=== PATIENT | female | born 1940 | race Caucasian/White ===

== ENCOUNTER 2017-07-25 17:00 | Inpatient (IN) | payer MEDICARE, OTHER ==
[~2017-07-25] VITALS: Ht 144.8 cm; Wt 71.0 kg
--- NOTE | ~2017-07-25 | HP ---
PATIENT'S NAME: LOY MOORE [facility] AGE: 77 Y [address] ROOM: [place] [address] LOCATION: [facility] ADMIT DATE: 07/25/2017 History & Physical DISCHARGE DATE: FAMILY PHYSICIAN: Marine Dunn MD ATTENDING PHYSICIAN: MARINE HAILE DATE OF SERVICE: HISTORY OF PRESENT ILLNESS: Ms. Moore is a 77-year-old female, transferred to after having initially been evaluated in [place], with a chief complaint of right shoulder pain and a secondary complaint of right 5th digit pain. Pain in both of these areas commenced acutely as the result of a fall this morning. She states that she tripped and landed on her right side. She denies associated or precipitating head trauma or loss of consciousness. She denies associated or precipitating presyncope or syncope. She states that she has a history of low-grade intermittent right shoulder pain in the past for which she has received periodic chiropractic treatments. She has no history of prior surgery on the right shoulder. Her past orthopedic history is significant for having undergone open reduction and internal fixation of fractures of the left shoulder and left hip with me a few years ago. She denies numbness or paresthesias in her right hand. After having been diagnosed with a right proximal humerus fracture in [place], she was transferred here by a private vehicle by her daughter. ALLERGIES: PENICILLIN. PAST SURGICAL HISTORY: Open reduction and internal fixation of left shoulder. Open reduction and internal fixation of left hip. Her past medical history is otherwise as specified on her hospital chart. PRESENT MEDICATIONS: Otherwise as specified on her hospital chart. SOCIAL HISTORY: Lives independently. Uses a cane in her right hand due to compromised balance. She is accompanied by her daughter, Estefany, and her grandson, Luis Manuel. PHYSICAL EXAMINATION: GENERAL: Alert, oriented, well-hydrated, well-nourished, pleasant, cooperative female who is in no distress. MUSCULOSKELETAL: There is moderate swelling at the right shoulder. There is significant tenderness at the right deltoid region. There are no active skin PATIENT'S NAME: LOY MOORE [facility] AGE: 77 Y [address] ROOM: [place] [address] LOCATION: [facility] ADMIT DATE: 07/25/2017 History & Physical DISCHARGE DATE: FAMILY PHYSICIAN: Marine Dunn MD ATTENDING PHYSICIAN: MARINE HAILE lesions or masses throughout the right upper extremity. There is moderate swelling and associated tenderness at the base of the right 5th digit. She is wearing a splint on the right 5th digit, which extends from the tip of the 5th digit to the midportion of the proximal phalanx. She has a well-healed deltopectoral scar at the left shoulder. There is no swelling or tenderness at either elbow. 2+ radial pulses bilaterally. Median, radial, and ulnar nerve motor and sensory functions are normal at the right hand with the exception of 4/5 infant toddler lead teacher strength (flexion strength at the 5th digit is week associated with pain at the base of the 5th digit). NEUROLOGIC: She is alert and oriented to person place and time. RADIOGRAPHS: Two views of the right shoulder demonstrate a displaced surgical neck fracture. The humeral head is not well visualized, but it does not appear dislocated. CT scan images of the right shoulder demonstrate a head splitting fracture with significant articular incongruity. There are comminuted fractures of the greater and lesser tuberosities. Plain radiographs of the right hand demonstrate a markedly angulated fracture of the base of the proximal phalanx with approximately 30 degrees apex volar angulation. IMPRESSION: 1. Severely comminuted, displaced, intra-articular right proximal humerus fracture. 2. Markedly angulated right 5th digit proximal phalanx fracture. RECOMMENDATIONS: I have reviewed operative and nonoperative options for both of these injuries. For the 5th digit, I have recommended a trial of splinting in an ulnar gutter splint in flexion. This will be applied after surgery on the shoulder. I have discussed relative risks, benefits, limitations, and alternatives to open reduction and internal fixation versus hemiarthroplasty versus reverse total shoulder arthroplasty. I feel that her best option would be a reverse total shoulder arthroplasty (given the comminuted intra-articular nature of the injury). I have discussed technical aspects of surgery as well as risks and limitations thereof with the patient as well as with her daughter. We have also discussed the anticipated need for 6 weeks of immobilization in a sling. We have specifically discussed the potential for infection, stiffness, neurovascular complications, stiffness, instability, blood transfusion risks, PATIENT'S NAME: LOY MOORE [facility] AGE: 77 Y [address] ROOM: [id number] [place], [place] [address] LOCATION: [facility] ADMIT DATE: 07/25/2017 History & Physical DISCHARGE DATE: FAMILY PHYSICIAN: Marine Dunn MD ATTENDING PHYSICIAN: MARINE HAILE wear, loosening, and potential need for revision. The patient has been admitted. Mechanical DVT prophylaxis and incentive spirometry have been initiated. I have consulted Dr. Kelvin Taylor for preoperative medical optimization and perioperative medical management. We will proceed to the operating room first thing in the morning. Informed consent has been granted. MD JEFFREY GONSALEZ/shirlene /[id number] D: [id number] T: [id number] HISTORY & PHYSICAL
--- NOTE | ~2017-07-25 | CON ---
PATIENT'S NAME: LOY MONDRAGON [facility] AGE: 77 Y [address] ROOM: [place] [address] LOCATION: [facility] ADMIT DATE: 07/25/2017 Consultation DISCHARGE DATE: 07/28/2017 FAMILY PHYSICIAN: Richard Dunn MD ATTENDING PHYSICIAN: Richard Smalls REFERRING PHYSICIAN: Mahi Taylor MD CHIEF COMPLAINT: Right shoulder pain and right hand pain. HISTORY OF PRESENT ILLNESS: The patient is a 77-year-old white female who was transferred to [facility] the care of Dr. Richard Smalls after being evaluated at [place], [place]. At that time, she had chief complaint right shoulder pain and a secondary complaint of a right 5th digit pain. She had tripped at home and landed on her right side. She has had a previous open reduction and internal fixation of her left shoulder and an open reduction and internal fixation of her left hip in the past. Dr. Smalls consulted me to see her for medical management because of her history of Parkinson disease and for general medical management. When I see the patient preop, she is uncomfortable, sitting in bed with her right arm in a sling. She does not complain of recent chest pain, shortness of breath, or MD. Her sugar originally here checked was elevated 500, but this was drawn above where she being given IV fluid. She gives no history of diabetes mellitus type 2. She has no history of bleeding disorder or problem with general anesthesia. She does not have obstructive sleep apnea by history. PAST MEDICAL HISTORY: ALLERGIES: TO PENICILLIN. PREVIOUS OPERATIONS: As described above. SOCIAL HISTORY: Lives independently, is . IMMUNIZATIONS: Status unknown. REVIEW OF SYSTEMS: Positive for Parkinson disease, previous surgeries as mentioned. Negative for heart disease, lung disease, GI problems, or diabetes. PATIENT'S NAME: LOY MONDRAGON [facility] AGE: 77 Y [address] ROOM: [place] [address] LOCATION: [facility] ADMIT DATE: 07/25/2017 Consultation DISCHARGE DATE: 07/28/2017 FAMILY PHYSICIAN: Richard Dunn MD ATTENDING PHYSICIAN: Richard Smalls PHYSICAL EXAMINATION: GENERAL: Pleasant elderly female, lying in bed, with her arm in a sling. She is oriented to person, place, and time. HEENT: Shows pupils reactive to light. She is wearing glasses. TMs not visualized. Posterior pharynx is clear. Mucous membranes are moist. NECK: Unremarkable. Thyroid not enlarged. No adenopathy. I did not listen for bruits. LUNGS: Clear anteriorly. HEART: Shows no murmur, gallop, or rub. ABDOMEN: Benign without point tenderness or mass. PELVIC AND RECTAL: Not done. EXTREMITIES: Right arm in a sling. Faheem wrap around her right hand. NEUROLOGIC: Shows cranial nerves intact. No lateralizing signs. Mental status normal for normal for age. No evidence of depression or anxiety. IMPRESSION: 1. Ground level fall. 2. Resultant right proximal humeral fracture. 3. Right angulated 5th digit proximal phalanx fracture. 4. Parkinson disease. 5. Previous open reduction and internal fixation of left shoulder. 6. Previous open reduction and internal fixation left hip. PLAN: We will follow daily if further treatment is indicated. MAHI TAYLOR MD SITE IDENTIFICATION SPECIALIST/modl /[id number] d: 07/27/17 1317 t: 08/07/17 0759, CONSULTATION REPORT
--- NOTE | ~2017-07-25 | OR ---
PATIENT'S NAME: LOY MOORE [facility] AGE: 77 Y [address] ROOM: [place] [address] LOCATION: [facility] ADMIT DATE: 07/25/2017 OR/Procedure Report DISCHARGE DATE: FAMILY PHYSICIAN: Richard Dunn MD ATTENDING PHYSICIAN: Richard Smalls SURGEON: Richard Smalls MD HOOKER UP: 1. SENG Justin. 2. Jose Angel Ba CST/TELEPHONE AD TAKER. DATE OF PROCEDURE: 07/26/2017 PREOPERATIVE DIAGNOSIS: Comminuted right proximal humerus fracture (four-part fracture with intraarticular extension). PROCEDURE PERFORMED: Right shoulder reverse total shoulder arthroplasty with open reduction and internal fixation of greater and lesser tuberosity fracture fragments. ANESTHESIA: General endotracheal anesthesia plus subcutaneous and periarticular local anesthesia (ropivacaine with epinephrine). DRAINS: None. SPECIMEN: None. COMPLICATIONS: None. IMPLANTS: Mary comprehensive shoulder system humeral fracture stem (8 mm x 122 mm). Size 44 mm humeral tray with 36 mm inner diameter +3 mm humeral polyethylene bearing. Biomet comprehensive 36 mm diameter glenosphere with comprehensive reverse total shoulder arthroplasty mini glenosphere baseplate with 6.5 mm central locking screw and 4.75 mm peripheral locking screws x4. ESTIMATED BLOOD LOSS: Approximately 100 mL. INDICATION FOR PROCEDURE: Ms. Moore is a 77-year-old female who fell yesterday, sustaining a comminuted head-splitting proximal humerus fracture. Risks, benefits, limitations, and alternatives to reverse total shoulder arthroplasty versus hemiarthroplasty versus open reduction and internal fixation have been thoroughly reviewed, and informed consent has been granted. We have discussed potential adverse sequelae of the injury itself as well. We have specifically reviewed risks and implications of infection, tuberosity nonunion, neurovascular complications, stiffness, wear, loosening, instability, and potential need for revision. Informed consent granted. DESCRIPTION OF PROCEDURE: Ms. Moore placed in a modified beach chair position PATIENT'S NAME: LOY MOORE [facility] AGE: 77 Y [address] ROOM: [place] [address] LOCATION: [facility] ADMIT DATE: 07/25/2017 OR/Procedure Report DISCHARGE DATE: FAMILY PHYSICIAN: Richard Dunn MD ATTENDING PHYSICIAN: Richard Smalls after administration of general endotracheal anesthesia and prophylactic antibiotics. The right shoulder was prepped and draped with vigilant sterile technique. The right shoulder was approached through a standard deltopectoral incision. The deltopectoral interval was bluntly developed. There was moderate contusion of the deltoid and considerable swelling of the deltoid. There was a large subdeltoid hematoma. The cephalic vein was identified and mobilized laterally with the deltoid. The biceps tendon was identified. The greater tuberosity fracture fragment was markedly comminuted. The humeral head was in 3 fragments with significant displacement. Articular fragments were extracted. Tagging sutures were placed in the greater and lesser tuberosity fracture fragments. The humeral canal was reamed by hand to a size 8. Circumferential glenoid exposure was obtained. The glenoid face was reamed over a guidewire and the glenoid baseplate was impacted into position and obtained an excellent press fit. This was augmented with a central 6.5 mm locking screw and 4 peripheral 4.75 mm locking screws. The glenosphere was impacted into position and confirmed to be fully and securely seated with circumferential digital palpation. After trial reductions, the humeral component was cemented in 30 degrees of retroversion using Kovio Simplex cement with premixed tobramycin after the cement restrictor had been placed to the appropriate depth. All excess cement was removed. The final humeral baseplate was impacted into position after the trunnion was thoroughly irrigated and dried. A final reduction was performed. The articulation was confirmed to be stable with internal and external rotation with the arm at the side, with the arm forward flexed, and with the arm abducted to 90 degrees. The greater and lesser tuberosity fracture fragments were secured with multiple #5 Ethibond sutures through the fins of the implant. The entire incision and joint space were thoroughly irrigated with bacteriostatic pulsatile saline lavage at this point as well as several times throughout the case. The incision was closed with simple deep interrupted 0 Vicryl followed by superficial buried interrupted 2-0 Vicryl and a running subcuticular 3-0 Monocryl suture, followed by Dermabond, followed by Steri-Strips with benzoin. The dressing consisted of an occlusive Mepilex dressing. PATIENT'S NAME: LOY MOORE [facility] AGE: 77 Y [address] ROOM: [place] [address] LOCATION: [facility] ADMIT DATE: 07/25/2017 OR/Procedure Report DISCHARGE DATE: FAMILY PHYSICIAN: Richard Dunn MD ATTENDING PHYSICIAN: Richard Smalls A shoulder immobilizer was placed and the patient was extubated and transported to the postanesthesia care unit in stable and comfortable condition. There were no complications. MD JEFFREY GONSALEZ/shirlene /[id number] d: 07/26/172303 t: 08/09/172219, OPERATIVE SUMMARY
--- NOTE | ~2017-07-25 | PN ---
PATIENT'S NAME: CINTHIA MOORE [facility] AGE: 77 Y [address] ROOM: [address] [address] LOCATION: [facility] ADMIT DATE: 07/25/2017 Progress Notes DISCHARGE DATE: 07/28/2017 FAMILY PHYSICIAN: Richard Dunn MD ATTENDING PHYSICIAN: Richard Smalls CORRECTED COPY -- WORK TYPE / 07-30-2017 / KLD DATE OF SERVICE: 07/26/2017 HISTORY: Cinthia Moore was admitted yesterday, on 07/25/2017 under the care of Dr. Richard Smalls with a severely comminuted displaced intra-articular right proximal humeral fracture and an angulated right fifth digit proximal phalanx fracture. She was taken to the operating room today. She was cleared medically by me preop. The reason for this update is that on admission her blood sugar was drawn above where her IV was in and her sugar was over 500. Since that time, her Accu-Chek's have been within normal range. The patient gave no family history or prior history of diabetes mellitus, type 2. The patient does not want to be treated for diabetes. So I told her at least while she is here, we would check Accu-Cheks over the next 24 hours and use a sliding scale insulin just as needed and then of course as an outpatient, she can have an A1c drawn. She and her understand that and the reason for her testing. Her vital signs otherwise are stable. The patient is alert when I see her postop, day of surgery in the afternoon. ASSESSMENT: 1. Ground level fall. 2. Comminuted proximal right humeral fracture. 3. Displaced proximal right fifth finger fracture. Both of these fractures have been treated today by Dr. Smalls. 4. Parkinson disease. PLAN: Follow daily. MD ROCIO ROGER/shirlene /[id number] PATIENT'S NAME: CINTHIA MOORE [facility] AGE: 77 Y [address] ROOM: [id number] [place], [place] [address] LOCATION: [facility] ADMIT DATE: 07/25/2017 Progress Notes DISCHARGE DATE: 07/28/2017 FAMILY PHYSICIAN: Richard Dunn MD ATTENDING PHYSICIAN: Richard Smalls CORRECTED COPY -- WORK TYPE / 07-30-2017 / KLD d: 07/27/17 1024 t: 08/07/17 0756, PROGRESS NOTES
--- NOTE | ~2017-07-25 | DS ---
PATIENT'S NAME: LOY MONDRAGON [facility] AGE: 77 Y [address] ROOM: [place] [address] LOCATION: [facility] ADMIT DATE: 07/25/2017 Discharge Summary DISCHARGE DATE: 07/28/2017 FAMILY PHYSICIAN: Richard Dunn MD ATTENDING PHYSICIAN: Richard Smalls PRIMARY DIAGNOSIS: Right proximal humerus fracture. SECONDARY DIAGNOSES: 1. Right 5th proximal phalanx fracture. 2. Parkinson's. PROCEDURE PERFORMED: Right shoulder reverse total shoulder arthroplasty with open reduction and internal fixation of greater and lesser tuberosity fracture fragments. HISTORY: The patient is a 77-year-old female who fell and sustained a comminuted head splitting proximal humerus fracture. She decided to proceed with shoulder arthroplasty after having been thoroughly counseled regarding the risks, benefits, limitations, and alternatives. Please refer to her outpatient clinic notes and her admission history and physical. HOSPITAL COURSE: The patient underwent the above specified procedure on 07/26/2017 without complications. General endotracheal anesthesia plus subcutaneous and periarticular local anesthesia was utilized. She received 24 hours of perioperative prophylactic antibiotics. She remained hemodynamically stable and neurovascularly intact throughout her entire hospital course. On the date of discharge, the incision at the shoulder was healing well and showed no signs of infection. DISPOSITION: Home. DISCHARGE DIET: Regular. DISCHARGE ACTIVITY: She is to remain in the sling maritime guard. She may perform gentle Codman's exercises 3 to 4 times daily. There is to be no dressing changes. She is to notify doctor immediately if she notes increased pain, fevers, chills, erythema, or drainage. DISCHARGE MEDICATIONS: [place] 5/325 take 1 tablet p.o. every 6 hours as needed for pain. She is then instructed to continue all of her pre-admission medications as instructed by her Internal Medicine physician. FOLLOWUP: One week subsequent to dismissal from the hospital for initial postoperative evaluation and x-rays at that time. PATIENT'S NAME: LOY MONDRAGON [facility] AGE: 77 Y [address] ROOM: [address] [address] LOCATION: [facility] ADMIT DATE: 07/25/2017 Discharge Summary DISCHARGE DATE: 07/28/2017 FAMILY PHYSICIAN: Richard Dunn MD ATTENDING PHYSICIAN: Richard Smalls SENG MARSHALL FOR MD REYNA GONSALEZ/shirlene /[id number] d: 08/02/17 0204 t: 08/08/17 0846, DISCHARGE SUMMARY
[2017-07-25] MEDS ORDERED: SINEMET CR 25-1 EACH PO ×2 (18:33)
--- NOTE | 2017-07-25 18:45 | NUR ---
Pt is 77 y/o female admit for fx R)humerus for . to consult. Allergy to PCN. Red and yellow bracelets on. Pt lives at home with her . Hx dizziness,Parkinsons. Wears glasses and dentures. States she was going to a hair appt and was walking across the grass and stepped in a hole and fell. CAme via ambulance from [facility]. Family at bedside. Only home med is Sinemet TID. Plan is for surgery.
[2017-07-25 19:07] LABS: BASOPHIL % 0.2 %; EOSINOPHIL % 0.1 %; HEMATOCRIT 38.4 % (33.0-46.0); HEMOGLOBIN 12.3 g/dL (10.0-15.0); IMMATURE GRANULOCYTE # 0.1 K/uL (0.0-0.3); IMMATURE GRANULOCYTE % 0.3 %; LYMPHOCYTE # 0.8 K/uL (0.8-4.0); LYMPHOCYTE % 5.4 %; MCH 29.9 pg (27.0-34.0); MCV 93.4 fl (83.0-98.0); MONOCYTE # 0.7 K/uL (0.0-1.0); MONOCYTE % 4.7 %; MPV 11.4 fl (9.4-12.4); NEUTROPHIL # (ANC) 13.1 K/uL (1.8-7.8); NEUTROPHIL % 89.3 %; NRBC % 0 /100WBC (0-0.00); PLATELET COUNT 240 K/uL (150-450); RBC 4.11 M/uL (3.50-5.50); WBC 14.7 K/uL (4.0-11.0)
[2017-07-25 19:24] LABS: ALBUMIN 3.1 gm/dL (3.5-5.0); ANION GAP 15.1 (10.0-19.0); CALCIUM 8.2 mg/dL (8.5-10.5); CREATININE 1.1 mg/dL (0.5-1.1); POTASSIUM 4.1 mMol/L (3.7-5.1); TOTAL BILIRUBIN 0.5 mg/dL (0.0-1.5); TOTAL PROTEIN 6.8 g/dL (6.0-8.4)
--- NOTE | 2017-07-26 05:10 | NUR ---
Shift Summary: Patient has Parkinson's Dx. Tremors, slow shuffling gait, flat affect. Right arm in a sling with ice pack. Scheduled for surgery at 0700. Has not requested any pain medication this shift. NPO since her admission.
--- NOTE | 2017-07-26 11:35 | NUR ---
Introduced self/role to patient's family as she wasn't up from surgery yet. Present - 2 daughters, 1 son and her . They said plan was home, probably Saturday. She can go home with either one of the daughters if need be. Didn't anticipate any needs. Has DME from a previous injury 4 years ago. They will assist with bathing and other tasks between the family. There is another son who just isn't present. Added my name to her marker board, will follow.
--- NOTE | 2017-07-26 17:01 | NUR ---
Pt returned from surgery at 1150. She had reverse total Rt shoulder. She is alert, oriented. Rt shoulder mepilix dressing dry and intact. Ice to shoulder. Rt arm in pocket sling, and Rt wrist and 4th and 5th fingers in a cock up splint. Rt hand edematous and ecchymotic. Moves 1, 2 and 3 fingers some and denies numbness or tingling. Rt 4 and 5 fingers in splint and has sensation to touch and are warm but states a little numbness. Pt has ecchymosis Rt upper arm and under arm. Pt rated pain at 4 now down to 1. Up to BSC and some stress incontinence and voided. Up in recliner. States it is more comfortable. Pt family here. Pt on accuchecks AC and HS. Pt had norco and torodol in PACU and no pain meds since up to floor. Pts legs are stiff. She is 2 assist. VS will be routine for you
--- NOTE | 2017-07-27 03:47 | NUR ---
Pt is AOx3. Pt is up with two assist with cane to BSC. Accucheck ACHS. Strong radial pulse. Sling to right arm and finger splint for right 4th and 5th digit. [place] for pain. Dressing is C/D/I. Hx of Parkinsons. Pt on 1L O2.
--- NOTE | 2017-07-27 13:03 | NUR ---
Significant Event: AOx3. VSS. VSM WNL. Sling and brace to R) arm. Dressing to shoulder is C/D/I. Elevated and ice. Up with 1 assist to the bathroom. Patient will dischrge home tomorrow. Follow up:
--- NOTE | 2017-07-28 03:55 | NUR ---
Significant Event: PATIENT IS ALERT AND ORIENTATED X3. AMBULATES WITH 1-2 ASSIST GB WALKER. NO COMPLAINTS OF PAIN OR DISCOMFORT. CONTINUE ICING R SHOULDERING AND HAND KEEP ELEVATED. VSS WNL, CSM WNL, IV TO L HAND FLUSHES WELL NO BLOOD RETUN Follow up:
[2017-07-28] MEDS ORDERED: NORCO 5-325 TA1 EACH PO (10:15)
--- NOTE | 2017-07-28 11:43 | NUR ---
AOx3. VSS. CSM WNL. Sling intact. Patient refused pain medication. IV dc'd. Patient and family had no questions or concerns. Patient was wheeled to [facility] at 1130 for dismissal home with family.
== END 2017-07-28 11:20 | disposition disaster alternative care site (69) | DRG 483 ==
LOC: G3N 17:09
PROVIDERS: Family Medicine; ADMIT Orthopaedic Surgery
PROC: 0RRJ00Z Replacement of Right Shoulder Joint with Reverse Ball and Socket Synthetic Substitute, Open Approach (ICD-10-PCS; principal; 2017-07-26)
DX: S42.291A Other displaced fracture of upper end of right humerus, initial encounter for closed fracture (principal); G20 Parkinson's disease; S62.616A Displaced fracture of proximal phalanx of right little finger, initial encounter for closed fracture; W01.0XXA Fall on same level from slipping, tripping and stumbling without subsequent striking against object, initial encounter
CPT/HCPCS: C1713; C1776; J1100; J1885; J2270; J2405; J2795; J7030; J7120; J7121